=== PATIENT | male | born 1965 | race Two or more races ===

== ENCOUNTER 2017-11-03 02:43 | Emergency (ER) | payer SELFPAY ==
[~2017-11-03] VITALS: Ht 172.7 cm; Wt 80.0 kg
[2017-11-03 02:55] VITALS: BP 158/106
[2017-11-03] MEDS ORDERED: KETOROLAC 60MG/2ML VIAL IM ONE (05:00)
== END 2017-11-03 08:16 | disposition home or self-care (01) ==
LOC: ER 02:43
DX: R51 Headache (principal); F17.200 Nicotine dependence, unspecified, uncomplicated; F10.10 Alcohol abuse, uncomplicated; Y93.55 Activity, bike riding; Z91.81 History of falling
CPT/HCPCS: 96372; 99283; J1885